=== PATIENT | female | born 1990 | race Caucasian/White ===

== ENCOUNTER 2020-08-25 09:40 | Outpatient (RCR) | payer OTHER | END 2020-09-06 | disposition home or self-care (01) | LOC: WSST | DX: R13.12 Dysphagia, oropharyngeal phase (principal) ==

== ENCOUNTER → 2020-09-02 | Outpatient (CLI) | payer OTHER | LOC: COL.RAD 07:29 | DX: R13.14 Dysphagia, pharyngoesophageal phase (principal) ==

== ENCOUNTER → 2020-09-22 | Outpatient (CLI) | payer OTHER | LOC: COL.RAD 10:45 | DX: R13.12 Dysphagia, oropharyngeal phase (principal) ==